=== PATIENT | male | born 1975 | race Caucasian/White ===

== ENCOUNTER 2020-07-30 01:23 | Emergency (ER) | payer SELFPAY ==
[2020-07-30] MEDS ORDERED: LIDOCAINE 1%/EPINEPHRINE INJ 20 ML VIAL INJ ONE (03:36)
--- NOTE | 2020-07-30 03:40 | ER Document Report ---
HPI - HPI Time Seen by Provider: 07/30/20 02:59 Pain Level: 3 Context: Patient is a 45-year-old male that comes emergency department for chief complaint of a fishhook in his left palm. Patient states that he will grabbed an old fishing carlos and this still had the hook on it, he states the hook accidentally was embedded into his left hand. This happened just prior to arrival. He states he uses the hook and brackish water. His tetanus is up-to-date within 5 years. He denies any other complaints. He is not a diabetic. Past Medical History - General Information source: Patient - Social History Smoking Status: Current Every Day Smoker Drug Abuse: None Lives with: Family Family History: Reviewed & Not Pertinent Surgical Hx: Negative - Immunizations Immunizations up to date: Yes Hx Diphtheria, Pertussis, Tetanus Vaccination: Yes Vertical Provider Document - CONSTITUTIONAL General Appearance: WD/WN, No Apparent Distress - HEENT HEENT: Atraumatic, Normocephalic - NECK Neck: Normal Inspection - RESPIRATORY Respiratory: Breath Sounds Normal, No Respiratory Distress - CARDIOVASCULAR Cardiovascular: Regular Rate, Regular Rhythm - GI/ABDOMEN Gastrointestinal: Abdomen Soft, Abdomen Non-Tender - BACK Back: Normal Inspection - MUSCULOSKELETAL/EXTREMETIES Musculoskeletal/Extremeties: MAEW, FROM, Tender - There is a large single fishhook imbedded in the left palm in the lower to mid thenar area. Full range of motion of the wrist, hand, and all fingers. Normal distal neurovascular exam. Upon examination of the hook the hook does appear to be in the superficial tissues. No current bleeding. No other concerning findings. - NEURO Level of Consciousness: Awake, Alert, Appropriate Motor/Sensory: No Motor Deficit, No Sensory Deficit - DERM Integumentary: Warm, Dry, No Rash Course - Re-evaluation Re-evalutation: Bruni is in the superficial tissues of the left palm near the thenar area. There are no deficits in the hand, there are no concerning findings otherwise, I did discuss potentially an x-ray with the patient but this was declined. I feel this is appropriate, low suspicion that this is embedded in the bone or that there is any other concerning involvement. Area was cleaned, anesthesia placed, hook was removed without difficulty, patient placed on doxycycline, discussed care, follow-up, return precautions. Patient states understanding and agreement. - Vital Signs Vital signs: Temp Pulse Resp BP Pulse Ox 97.8 F 63 20 117/83 97 07/30/20 01:37 07/30/20 01:37 07/30/20 01:37 07/30/20 01:37 07/30/20 01:37 Procedures - Additional Procedures Left palm foreign body removal Additional Procedures: Other - Left palm was cleaned with surgical cleanser, anesthesia provided with approximately 7 cc of lidocaine with epinephrine, hook was advanced through until the tip/miguelito came through the palm of the hand, the hook was cut to remove the miguelito and then the hook was pulled backwards easily to be removed from the hand. No complications. Patient tolerated well. Area cleaned again and dressed. Discharge - Discharge Clinical Impression: Fish hook injury of hand Qualifiers: Encounter type: initial encounter Laterality: left Qualified Code(s): S69.92XA - Unspecified injury of left wrist, hand and finger(s), initial encounter Foreign body in hand Qualifiers: Encounter type: initial encounter Laterality: left Qualified Code(s): S60.552A - Superficial foreign body of left hand, initial encounter Condition: Stable Disposition: HOME, SELF-CARE Additional Instructions: The fishhook has been removed, please keep the area clean, clean with soap and water, apply topical antibiotic. Take the doxycycline antibiotic as prescribed to completion. Follow-up with primary care for additional management. Return for any concerning symptoms including developing pain, swelling, redness, discolored drainage, fever, or any other concerning symptoms. Prescriptions: Doxycycline Hyclate [Vibramycin 100 mg Tablet] 100 mg PO BID 7 Days #14 tablet Forms: Return to Work
[2020-07-30] MEDS ORDERED: DOXYCYCLINE HYCLATE 100 MG TABLET PO ONE (04:36)
[2020-07-30 04:52] VITALS: BP 119/80
== END 2020-07-30 04:52 | disposition home or self-care (01) ==
LOC: ER 01:23
DX: S61.442A Puncture wound with foreign body of left hand, initial encounter (principal); X58.XXXA Exposure to other specified factors, initial encounter; F17.200 Nicotine dependence, unspecified, uncomplicated
CPT/HCPCS: 99283; 20103; J3490